=== PATIENT | female | born 1980 | race Two or more races ===

== ENCOUNTER 2024-06-12 06:53 | Emergency (ER) | payer MEDICARE, MEDICAID ==
[~2024-06-12] VITALS: Ht 160 cm; Wt 95.5 kg
[2024-06-12] MEDS ORDERED: htn PO (07:01)
[2024-06-12] MEDS ORDERED: cholesterol PO (07:01)
[2024-06-12 07:02] VITALS: TEMP 97.6
[2024-06-12] MEDS: METHADONE HCL 10 MG TABLET PO ONE (07:56)
[2024-06-12 07:57] VITALS: BP 128/84; PULSE 95; RESP 16; O2SAT 99
[2024-06-13] MEDS ORDERED: METH5SOL20 PO (07:21)
== END 2024-06-12 08:04 | disposition home or self-care (01) ==
LOC: EMS 06:53
DX: F11.23 Opioid dependence with withdrawal (principal); E11.9 Type 2 diabetes mellitus without complications; I10 Essential (primary) hypertension; F17.210 Nicotine dependence, cigarettes, uncomplicated
CPT/HCPCS: 99283

== ENCOUNTER 2024-06-13 07:04 | Emergency (ER) | payer MEDICARE, MEDICAID ==
[~2024-06-13] VITALS: Ht 160 cm; Wt 94.5 kg
[~2024-06-13 07:04] MED LIST: cholesterol PO; htn PO
[2024-06-13] MEDS ORDERED: METH5SOL20 PO (07:21)
[2024-06-13 07:46] LABS: GLUCOMETER DEV NAME(LOC) ERT.6; GLUCOSE,POINT OF CARE 216 MG/DL (70-110)
[2024-06-13 08:04] VITALS: BP 130/83; PULSE 102; RESP 16; TEMP 98.2; O2SAT 99
[2024-06-13] MEDS: METHADONE HCL 10 MG TABLET PO ONE (08:14)
== END 2024-06-13 09:13 | disposition home or self-care (01) ==
LOC: EMS 07:10
DX: F11.10 Opioid abuse, uncomplicated (principal); E11.9 Type 2 diabetes mellitus without complications; E78.00 Pure hypercholesterolemia, unspecified; I10 Essential (primary) hypertension; F17.210 Nicotine dependence, cigarettes, uncomplicated
CPT/HCPCS: 82962; 99283; 99285

== ENCOUNTER → 2024-06-14 | Emergency (ER) | payer MEDICARE, MEDICAID ==
[~2024-06-14] VITALS: Ht 160 cm; Wt 94.5 kg
[~2024-06-14] MED LIST changes: +METH5SOL20 PO
[2024-06-14 06:26] VITALS: BP 103/70; PULSE 98; RESP 15; O2SAT 100
[2024-06-16 13:16] LABS: GLUCOMETER DEV NAME(LOC) ERT.6; GLUCOSE,POINT OF CARE 173 MG/DL (70-110)
== END | disposition still patient (30) ==
LOC: EMS 06:19
DX: Z53.21 Procedure and treatment not carried out due to patient leaving prior to being seen by health care provider (principal); E11.9 Type 2 diabetes mellitus without complications
CPT/HCPCS: 82962

== ENCOUNTER → 2024-06-14 | Emergency (ER) | payer MEDICARE, MEDICAID ==
[~2024-06-14] VITALS: Ht 160 cm; Wt 94.5 kg
[2024-06-14 11:52] VITALS: BP 126/87; PULSE 76; RESP 18; TEMP 98; O2SAT 96
== END | disposition still patient (30) ==
LOC: EMS 11:42
DX: Z76.0 Encounter for issue of repeat prescription (principal); Z53.21 Procedure and treatment not carried out due to patient leaving prior to being seen by health care provider

== ENCOUNTER 2024-06-15 07:03 | Emergency (ER) | payer MEDICARE, MEDICAID ==
[~2024-06-15] VITALS: Ht 160 cm; Wt 94.5 kg
[2024-06-15 07:10] VITALS: BP 118/79; PULSE 109; RESP 18; TEMP 98; O2SAT 98
[2024-06-15 08:06] LABS: GLUCOMETER DEV NAME(LOC) ERT.6; GLUCOSE,POINT OF CARE 203 MG/DL (70-110)
== END 2024-06-15 09:25 | disposition left against medical advice (07) ==
LOC: EMS 07:03
DX: R51.9 Headache, unspecified (principal); Z53.21 Procedure and treatment not carried out due to patient leaving prior to being seen by health care provider
CPT/HCPCS: 82962

== ENCOUNTER 2024-07-02 07:29 | Emergency (ER) | payer MEDICARE, MEDICAID ==
[~2024-07-02] VITALS: Ht 160 cm; Wt 95.5 kg
[2024-07-02 07:32] VITALS: BP 127/69; PULSE 109; RESP 18; TEMP 98.1; O2SAT 97
[2024-07-02 07:56] LABS: GLUCOMETER DEV NAME(LOC) ERT.6; GLUCOSE,POINT OF CARE 141 MG/DL (70-110)
[2024-07-03] MEDS ORDERED: IBUP-1492 PO (12:33)
== END 2024-07-02 08:43 | disposition left against medical advice (07) ==
LOC: EMS 07:31
DX: G89.29 Other chronic pain (principal); M54.50 Low back pain, unspecified; F11.20 Opioid dependence, uncomplicated; R14.0 Abdominal distension (gaseous); E11.9 Type 2 diabetes mellitus without complications; E78.00 Pure hypercholesterolemia, unspecified; I10 Essential (primary) hypertension; F17.210 Nicotine dependence, cigarettes, uncomplicated
CPT/HCPCS: 82962; 99282

== ENCOUNTER 2024-07-03 09:11 | Emergency (ER) | payer MEDICARE, MEDICAID ==
[~2024-07-03] VITALS: Ht 160 cm; Wt 104.5 kg
[~2024-07-03 09:11] MED LIST changes: -cholesterol PO; -htn PO
[2024-07-03 09:21] VITALS: TEMP 98.1
[2024-07-03] MEDS: PANTOPRAZOLE SODIUM 40 MG/VIAL IVP ONE (10:01)
[2024-07-03] MEDS: SODIUM CHLORIDE 0.9% 500 ML IV ONE (10:03)
[2024-07-03 10:15] LABS: BASOPHILS % (AUTO) 0.5 % (0.0-2.0); EOSINOPHILS % (AUTO) 1.6 % (1.0-6.0); HEMATOCRIT 41.2 % (36-46); HEMOGLOBIN 13.4 g/dL (12.0-16.0); MEAN CORPUSCULAR HEMOGLOBIN 27.6 pg (26.0-34.0); MEAN CORPUSCULAR HGB CONC 32.5 G/dL (31.0-37.0); MEAN CORPUSCULAR VOLUME 85 fL (80-100); MONOCYTES # (AUTO) 0.6 K/uL (0.1-1.0); MONOCYTES % (AUTO) 5.6 % (2.0-9.0); NEUTROPHILS # (AUTO) 8.2 K/uL (1.8-7.7); NEUTROPHILS % (AUTO) 74.3 % (40.0-70.0); PLATELET COUNT (AUTO) 277 K/uL (150-450); RED BLOOD CELL COUNT(AUTO) 4.84 MIL/uL (4.00-5.20); RED CELL DISTRIBUTION WIDTH 15.2 % (11.5-14.5); WHITE BLOOD COUNT (AUTO) 11.1 K/uL (4.5-11.0)
[2024-07-03 10:22] LABS: ANION GAP 7 mmol/L (8-16); CALCIUM, TOTAL 8.3 mg/dL (8.8-10.5); CARBON DIOXIDE 29 mmol/L (22-29); CHLORIDE 103 mmol/L (98-107); CREATININE 0.99 mg/dL (0.60-1.30); GLOMERULAR FILTR. RATE CALC > 60 mL/min (>60); GLUCOSE,RANDOM 188 mg/dL (70-110); POTASSIUM 3.8 mmol/L (3.5-5.1); SODIUM SERUM 139 mmol/L (136-145); UREA NITROGEN, BLOOD 14 mg/dL (7-18)
[2024-07-03 10:33] LABS: HCG,QUANTITATIVE 2 mIU/mL (0-6); LIPASE 44 U/L (16-77)
[2024-07-03 12:12] VITALS: BP 133/81; PULSE 85; RESP 15; O2SAT 96
[2024-07-03] MEDS ORDERED: IBUP-1492 PO (12:33)
== END 2024-07-03 12:37 | disposition home or self-care (01) ==
LOC: EMS 09:13
DX: R10.9 Unspecified abdominal pain (principal); E11.9 Type 2 diabetes mellitus without complications; E78.00 Pure hypercholesterolemia, unspecified; I10 Essential (primary) hypertension; F17.210 Nicotine dependence, cigarettes, uncomplicated; F11.90 Opioid use, unspecified, uncomplicated
CPT/HCPCS: 99283; 96374; 96361; 80048; 83690; 84702; 85025; 36415; 82962; J2470; J7040

== ENCOUNTER 2024-07-19 16:26 | Emergency (ER) | payer MEDICARE, MEDICAID ==
[~2024-07-19] VITALS: Ht 160 cm; Wt 99.0 kg
[~2024-07-19 16:26] MED LIST changes: +IBUP-1492 PO
[2024-07-19 16:32] VITALS: BP 133/79; PULSE 103; RESP 16; TEMP 98.3; O2SAT 98
== END 2024-07-19 19:25 | disposition left against medical advice (07) ==
LOC: EMS 16:26
DX: G89.29 Other chronic pain (principal); M54.50 Low back pain, unspecified; Z53.21 Procedure and treatment not carried out due to patient leaving prior to being seen by health care provider

== ENCOUNTER 2024-08-07 00:47 | Emergency (ER) | payer MEDICARE, MEDICAID ==
[~2024-08-07] VITALS: Ht 157.5 cm; Wt 95.5 kg
[2024-08-07 01:02] VITALS: BP 116/55; PULSE 84; RESP 18; TEMP 98.4; O2SAT 96
[2024-08-07] MEDS: ONDANSETRON 4 MG TABLET PO ONE (02:59)
[2024-08-07] MEDS: OLANZapine 10 MG TABLET PO ONE (02:59)
[2024-08-07 03:08] LABS: COVID AG,FIA SOURCE NASAL SWAB
[2024-08-07 03:12] LABS: BASOPHILS % (AUTO) 0.6 % (0.0-2.0); EOSINOPHILS % (AUTO) 2.2 % (1.0-6.0); HEMATOCRIT 40.8 % (36-46); HEMOGLOBIN 13.6 g/dL (12.0-16.0); LYMPHOCYTES # (AUTO) 2.7 K/uL (1.0-4.8); LYMPHOCYTES % (AUTO) 21.8 % (22.0-44.0); MEAN CORPUSCULAR HEMOGLOBIN 28.4 pg (26.0-34.0); MEAN CORPUSCULAR HGB CONC 33.4 G/dL (31.0-37.0); MEAN CORPUSCULAR VOLUME 85 fL (80-100); MONOCYTES # (AUTO) 0.7 K/uL (0.1-1.0); MONOCYTES % (AUTO) 5.9 % (2.0-9.0); NEUTROPHILS # (AUTO) 8.5 K/uL (1.8-7.7); NEUTROPHILS % (AUTO) 69.5 % (40.0-70.0); PLATELET COUNT (AUTO) 281 K/uL (150-450); RED BLOOD CELL COUNT(AUTO) 4.79 MIL/uL (4.00-5.20); RED CELL DISTRIBUTION WIDTH 14.6 % (11.5-14.5); WHITE BLOOD COUNT (AUTO) 12.3 K/uL (4.5-11.0)
[2024-08-07 03:21] LABS: SARS-COV2 (COVID) ANTIGEN,FIA Negative (Negative)
[2024-08-07 03:21] LABS: ANION GAP 6 mmol/L (8-16); CALCIUM, TOTAL 9.9 mg/dL (8.8-10.5); CARBON DIOXIDE 33 mmol/L (22-29); CHLORIDE 99 mmol/L (98-107); CREATININE 1.22 mg/dL (0.60-1.30); GLOMERULAR FILTR. RATE CALC 48 mL/min (>60); GLUCOSE,RANDOM 89 mg/dL (70-110); POTASSIUM 3.8 mmol/L (3.5-5.1); SODIUM SERUM 138 mmol/L (136-145); UREA NITROGEN, BLOOD 13 mg/dL (7-18)
[2024-08-07 03:37] LABS: ALCOHOL, BLOOD (SERUM) < 3 mg/dL (0-10)
== END 2024-08-07 06:29 | disposition home or self-care (01) ==
LOC: EMS 00:52
DX: R44.1 Visual hallucinations (principal); R11.2 Nausea with vomiting, unspecified; E11.9 Type 2 diabetes mellitus without complications; E78.00 Pure hypercholesterolemia, unspecified; I10 Essential (primary) hypertension; F17.210 Nicotine dependence, cigarettes, uncomplicated; R44.0 Auditory hallucinations; F15.90 Other stimulant use, unspecified, uncomplicated; Z20.822 Contact with and (suspected) exposure to COVID-19
CPT/HCPCS: 99284; 87426; 80048; 82962; 85025; 36415; G0480; Q0162

== ENCOUNTER 2024-08-17 13:49 | Inpatient (IN) | payer MEDICARE, MEDICAID ==
[~2024-08-17] VITALS: Ht 160 cm; Wt 95.3 kg
[2024-08-17] MEDS ORDERED: ZOLPIDEM TARTRATE 10 MG TABLET PO PRN (16:00)
[2024-08-17] MEDS ORDERED: MAGNESIUM HYDROXIDE SUSPENSION 30 ML UDCUP PO PRN (16:00)
[2024-08-17] MEDS ORDERED: LOPERAMIDE HCL 2 MG CAPSULE PO PRN (16:00)
[2024-08-17] MEDS ORDERED: MAG HYDROX/ALUMINUM HYD/SIMETH ES 30 ML SUSPENSION UDCUP PO PRN (16:00)
[2024-08-17] MEDS ORDERED: GuaiFENesin/D-METHORPHAN [SUGAR-FREE] 200-20MG/10 ML SYRUP UDCUP PO PRN (16:00)
[2024-08-17] MEDS ORDERED: TUBERCULIN, PURIFIED PROTEIN DERIVATIVE 5 TU/0.1 ML SYRINGE ID ONE (16:00)
[2024-08-17] MEDS ORDERED: NALO4SPR NASAL (16:08)
[2024-08-17] MEDS ORDERED: METF-1211 PO (16:08)
[2024-08-17] MEDS ORDERED: OLAN5TAB77 PO (16:08)
[2024-08-17] MEDS ORDERED: [UNRECOGNIZED DRUG - CODE] PO (16:08)
[2024-08-17 17:21] LABS: GLUCOMETER DEV NAME(LOC) POC.BV; POC SARS-COV2 AG, FIA NEGATIVE (NEGATIVE)
[2024-08-17] MEDS: THIAMINE 100 MG TABLET PO SCH (17:58)
[2024-08-17] MEDS: OLANZapine 5 MG RAPDIS TABLET PO PRN (18:23)
[2024-08-17] MEDS: LORazepam 2 MG TABLET PO PRN (18:23)
[2024-08-17 18:39] VITALS: BP 118/78; PULSE 85; RESP 19; TEMP 98; O2SAT 98
[2024-08-17] MEDS ORDERED: INFLUENZA VIRUS VACCINE TVS (6MO+) 2024-25/PF 45 MCG/0.5 ML SYRINGE IM. ONE (20:15)
[2024-08-17] MEDS ORDERED: PNEUMOCOCCAL VACCINE POLYVALENT 0.5 ML SYRINGE [PPSV23] IM. ONE (20:15)
[2024-08-17 20:40] VITALS: BP 118/74; PULSE 88; RESP 16; TEMP 98; O2SAT 98
[2024-08-17] MEDS: DIVALPROEX SODIUM 500 MG ER TABLET PO SCH (20:48)
[2024-08-17] MEDS: OLANZapine 5 MG RAPDIS TABLET PO SCH (20:49)
[2024-08-17 22:00] LABS: GLUCOMETER DEV NAME(LOC) BV2S.; GLUCOSE,POINT OF CARE 190 MG/DL (70-110)
[2024-08-18 08:06] VITALS: RESP 18
[2024-08-18] MEDS: NALTREXONE HCL 50 MG TABLET PO SCH (09:00)
[2024-08-18] MEDS: MULTIVITAMINS WITH MINERALS, THERAPEUTIC TABLET PO SCH (09:00)
[2024-08-18] MEDS: FOLIC ACID 1 MG TABLET PO SCH (09:00)
[2024-08-18] MEDS: DiphenhydrAMINE HCL 50 MG/ML VIAL IM ONE ×2 (09:49→11:10)
[2024-08-18] MEDS: LORazepam 2 MG/ML VIAL IM ONE ×2 (09:49→11:07)
[2024-08-18] MEDS: HALOPERIDOL LACTATE 5 MG/ML VIAL IM ONE (09:49)
[2024-08-18] MEDS: ChlorproMAZINE HCL 50 MG/2 ML AMP IM ONE (11:10)
[2024-08-18] MEDS ORDERED: OLANZapine 5 MG RAPDIS TABLET PO PRN (20:00)
[2024-08-18 20:30] VITALS: BP 97/60; PULSE 77; RESP 16; TEMP 98.4; O2SAT 98
[2024-08-18] MEDS: MELATONIN 5 MG TABLET PO SCH (20:40)
[2024-08-19 06:10] VITALS: BP 119/79; PULSE 80; RESP 18
[2024-08-19] MEDS: ACETAMINOPHEN 325 MG TABLET PO PRN (06:12)
[2024-08-19 07:10] VITALS: RESP 18
[2024-08-19] MEDS: HydrOXYzine PAMOATE 50 MG CAPSULE PO PRN (08:02)
[2024-08-19] MEDS: PALIPERIDONE PALMITATE 234 MG/1.5 ML SYRINGE IM ONE (08:03)
[2024-08-19] MEDS: METHADONE HCL 10 MG/5 ML SOLUTION ORAL.SYG PO SCH (08:03)
[2024-08-19 08:30] VITALS: RESP 18
[2024-08-19] MEDS: LORazepam 2 MG/ML VIAL IM ONE (09:17)
[2024-08-19] MEDS: HALOPERIDOL LACTATE 5 MG/ML VIAL IM ONE (09:18)
[2024-08-19] MEDS: DiphenhydrAMINE HCL 50 MG/ML VIAL IM ONE (09:18)
[2024-08-19] MEDS: OLANZapine 5 MG RAPDIS TABLET PO PRN (18:15)
[2024-08-19 20:22] VITALS: RESP 20
[2024-08-19] MEDS: PROMETHAZINE HCL 25 MG TABLET PO PRN (21:51)
[2024-08-19] MEDS: OLANZapine 10 MG RAPDIS TABLET PO SCH (23:01)
[2024-08-20] VITALS (7 sets, daily range): BP systolic 106–142; BP diastolic 28–93; PULSE 75–113; RESP 18–20; TEMP 97.1–99.4; O2SAT 95–99
[2024-08-20] MEDS: GABAPENTIN 300 MG CAPSULE PO PRN (00:07)
[2024-08-20] MEDS: ESZOPICLONE 3 MG TABLET PO PRN (03:07)
[2024-08-20] MEDS ORDERED: CloNIDine HCL 0.1 MG TABLET PO PRN (15:15)
[2024-08-20] MEDS: CloNIDine HCL 0.1 MG TABLET PO SCH (16:58)
[2024-08-20] MEDS: BUPRENORPHINE HCL/NALOXONE HCL 2-0.5 MG SUBLINGUAL TABLET SL SCH (16:59)
[2024-08-21] MEDS: IBUPROFEN 600 MG TABLET PO PRN (01:03)
[2024-08-21 01:05] VITALS: BP 109/68; PULSE 97; RESP 18; TEMP 97.1; O2SAT 98
[2024-08-21 02:05] VITALS: RESP 16
[2024-08-21 06:14] VITALS: BP 116/84; PULSE 87; RESP 18; TEMP 97.4
[2024-08-21 08:33] LABS: BASOPHILS % (AUTO) 0.5 % (0.0-2.0); EOSINOPHILS % (AUTO) 0.6 % (1.0-6.0); HEMATOCRIT 47.4 % (36-46); HEMOGLOBIN 15.2 g/dL (12.0-16.0); LYMPHOCYTES # (AUTO) 4.1 K/uL (1.0-4.8); LYMPHOCYTES % (AUTO) 22.8 % (22.0-44.0); MEAN CORPUSCULAR HEMOGLOBIN 27.4 pg (26.0-34.0); MEAN CORPUSCULAR VOLUME 86 fL (80-100); MONOCYTES # (AUTO) 1.1 K/uL (0.1-1.0); MONOCYTES % (AUTO) 6.4 % (2.0-9.0); NEUTROPHILS # (AUTO) 12.5 K/uL (1.8-7.7); NEUTROPHILS % (AUTO) 69.7 % (40.0-70.0); PLATELET COUNT (AUTO) 332 K/uL (150-450); RED BLOOD CELL COUNT(AUTO) 5.54 MIL/uL (4.00-5.20); RED CELL DISTRIBUTION WIDTH 14.5 % (11.5-14.5); WHITE BLOOD COUNT (AUTO) 17.9 K/uL (4.5-11.0)
[2024-08-21 08:34] VITALS: BP 112/73; PULSE 78; RESP 18; TEMP 98
[2024-08-21 08:35] VITALS: BP 112/73; PULSE 78; RESP 18; TEMP 98; O2SAT 98
[2024-08-21 08:35] LABS: HEMOGLOBIN A1C 5.8 % (3.8-5.6)
[2024-08-21 08:46] LABS: ALBUMIN 3.2 g/dL (3.4-5.0); BILIRUBIN,TOTAL 0.4 mg/dL (0.1-1.0); CALCIUM, TOTAL 9.2 mg/dL (8.8-10.5); CREATININE 1.01 mg/dL (0.60-1.30); POTASSIUM 4.5 mmol/L (3.5-5.1); TOTAL PROTEIN, SERUM 7.5 g/dL (6.4-8.2)
[2024-08-21] MEDS: CIPROFLOXACIN HCL 500 MG TABLET PO SCH (18:27)
[2024-08-21 20:09] VITALS: BP 127/84; PULSE 100; RESP 18; TEMP 97.7; O2SAT 96
[2024-08-22 06:40] VITALS: BP 108/71; PULSE 85; RESP 18; TEMP 97.6
[2024-08-22 08:22] VITALS: BP 120/76; PULSE 100; RESP 16; TEMP 97.6; O2SAT 96
[2024-08-22 08:56] LABS: HCG,QUAL URINE NEGATIVE (NEGATIVE)
[2024-08-22 09:03] LABS: ALCOHOL, URINE DRUG SCREEN NEGATIVE (NEGATIVE); AMPHET/METH SCREEN,URINE NEGATIVE (NEGATIVE); BARBITURATE SCREEN, URINE NEGATIVE (NEGATIVE); BENZODIAZEPINES SCREEN,URINE NEGATIVE (NEGATIVE); CANNABINOID SCREEN,URINE NEGATIVE (NEGATIVE); COCAINE SCREEN,URINE NEGATIVE (NEGATIVE); METHADONE SCREEN, URINE POSITIVE (NEGATIVE); OPIATE SCREEN,URINE NEGATIVE (NEGATIVE); PHENCYCLIDINE SCREEN,URINE NEGATIVE (NEGATIVE)
[2024-08-22 10:16] VITALS: BP 134/88; PULSE 83; RESP 19; TEMP 98.3; O2SAT 99
[2024-08-22 20:30] VITALS: BP 118/68; PULSE 86; RESP 18; TEMP 97.6; O2SAT 98
[2024-08-23 05:56] VITALS: RESP 18
[2024-08-23 08:10] VITALS: BP 133/79; PULSE 108; PULSE 109; RESP 16; TEMP 96.5; O2SAT 94; O2SAT 99
[2024-08-23] MEDS: HydrOXYzine PAMOATE 50 MG CAPSULE PO PRN (08:39)
[2024-08-23] MEDS ORDERED: PALIPERIDONE PALMITATE 156 MG/ML SYRINGE IM ONE (09:00)
[2024-08-23 23:30] VITALS: RESP 18
[2024-08-24 08:46] VITALS: RESP 16
[2024-08-24] MEDS ORDERED: LORazepam 2 MG/ML VIAL ONE (10:10)
[2024-08-24] MEDS ORDERED: DiphenhydrAMINE HCL 50 MG/ML VIAL ONE (10:11)
[2024-08-24] MEDS ORDERED: HALOPERIDOL LACTATE 5 MG/ML VIAL ONE (10:11)
[2024-08-24] MEDS: HALOPERIDOL LACTATE 5 MG/ML VIAL IM ONE (10:19)
[2024-08-24] MEDS: DiphenhydrAMINE HCL 50 MG/ML VIAL IM ONE (10:20)
[2024-08-24] MEDS: LORazepam 2 MG/ML VIAL IM ONE (10:20)
[2024-08-24 17:13] VITALS: BP 104/66; PULSE 68; RESP 17; TEMP 96.6; O2SAT 97
[2024-08-24 20:30] VITALS: BP 117/73; PULSE 69; RESP 18; TEMP 97.2; O2SAT 98
[2024-08-24 20:31] VITALS: BP 104/66; PULSE 68; RESP 16; TEMP 96.5; O2SAT 97
[2024-08-25 09:22] VITALS: RESP 16
[2024-08-25] MEDS: MAG HYDROX/ALUMINUM HYD/SIMETH ES 30 ML SUSPENSION UDCUP PO PRN (09:22)
[2024-08-25 10:22] VITALS: RESP 16
[2024-08-25 10:30] VITALS: BP 132/67; PULSE 99; RESP 16; TEMP 98.9; O2SAT 98
[2024-08-25 10:46] VITALS: BP 132/67; PULSE 99; RESP 16; TEMP 98.9; O2SAT 98
[2024-08-25 21:22] VITALS: BP 129/70; PULSE 85; RESP 16; TEMP 96.8; O2SAT 97
[2024-08-25 21:23] VITALS: BP 129/70; PULSE 85; RESP 16; TEMP 96.8; O2SAT 97
[2024-08-26] MEDS: OLANZapine 5 MG RAPDIS TABLET PO SCH (01:55)
[2024-08-26 06:17] VITALS: BP 117/85; PULSE 94; RESP 17; TEMP 97.2; O2SAT 98
[2024-08-26 08:10] VITALS: RESP 18
[2024-08-26] MEDS: NICOTINE POLACRILEX 2 MG LOZENGE PO PRN (10:12)
[2024-08-26] MEDS ORDERED: HALOPERIDOL LACTATE 5 MG/ML VIAL ONE (12:28)
[2024-08-26] MEDS: DiphenhydrAMINE HCL 50 MG/ML VIAL IM ONE (12:59)
[2024-08-26] MEDS: HALOPERIDOL LACTATE 5 MG/ML VIAL IM ONE (12:59)
[2024-08-26] MEDS: LORazepam 2 MG/ML VIAL IM ONE (13:08)
[2024-08-27 08:41] VITALS: RESP 16
[2024-08-27 09:28] LABS: BASOPHILS % (AUTO) 0.3 % (0.0-2.0); EOSINOPHILS % (AUTO) 2.2 % (1.0-6.0); HEMATOCRIT 38.5 % (36-46); HEMOGLOBIN 12.6 g/dL (12.0-16.0); LYMPHOCYTES % (AUTO) 20.5 % (22.0-44.0); MEAN CORPUSCULAR HGB CONC 32.7 G/dL (31.0-37.0); MEAN CORPUSCULAR VOLUME 86 fL (80-100); MONOCYTES # (AUTO) 0.7 K/uL (0.1-1.0); PLATELET COUNT (AUTO) 242 K/uL (150-450); WHITE BLOOD COUNT (AUTO) 9.9 K/uL (4.5-11.0)
[2024-08-27 20:29] VITALS: BP 108/68; PULSE 69; RESP 16; TEMP 98.1; O2SAT 97
[2024-08-28 08:58] VITALS: RESP 16
[2024-08-28 09:17] VITALS: BP 138/88; PULSE 88; RESP 19; TEMP 98.3; O2SAT 99
[2024-08-28 20:09] VITALS: BP 106/60; PULSE 54; RESP 16; TEMP 97.4; O2SAT 95
[2024-08-29 08:48] VITALS: BP 122/81; PULSE 97; RESP 17; TEMP 98; O2SAT 96
[2024-08-29 12:33] VITALS: BP 114/65; PULSE 90; RESP 18; O2SAT 99
[2024-08-29 20:08] VITALS: BP 90/45; PULSE 65; RESP 18; TEMP 96.9; O2SAT 96
[2024-08-30 08:26] VITALS: BP 113/58; PULSE 100; RESP 18; TEMP 97.9; O2SAT 95
[2024-08-30] MEDS ORDERED: LORazepam 2 MG/ML VIAL ONE (10:48)
[2024-08-30] MEDS ORDERED: DiphenhydrAMINE HCL 50 MG/ML VIAL ONE (10:48)
[2024-08-30] MEDS: DiphenhydrAMINE HCL 50 MG/ML VIAL IM ONE (11:10)
[2024-08-30] MEDS: LORazepam 2 MG/ML VIAL IM ONE (11:10)
[2024-08-30] MEDS: ChlorproMAZINE HCL 50 MG/2 ML AMP IM ONE (11:11)
[2024-08-30 12:30] VITALS: BP 125/69; PULSE 105; RESP 17; O2SAT 97
[2024-08-30 16:30] VITALS: BP 144/87; PULSE 100; RESP 18; TEMP 97.2; O2SAT 96
[2024-08-30 21:09] VITALS: BP 90/55; PULSE 74; RESP 17; TEMP 97.5; O2SAT 96
[2024-08-31 08:17] VITALS: BP 106/79; PULSE 89; RESP 18; TEMP 98; O2SAT 99
[2024-08-31] MEDS ORDERED: ChlorproMAZINE HCL 100 MG TABLET PO PRN (10:45)
[2024-08-31] MEDS: ChlorproMAZINE HCL 50 MG TABLET PO SCH ×2 (12:45→16:26)
[2024-09-01 08:24] VITALS: RESP 18
[2024-09-01 20:17] VITALS: BP 94/49; PULSE 77; RESP 18; TEMP 96.8; O2SAT 98
[2024-09-01] MEDS: ChlorproMAZINE HCL 100 MG TABLET PO SCH (20:57)
[2024-09-02 08:08] VITALS: RESP 16
[2024-09-02] MEDS ORDERED: CHLO100T42 PO (12:07)
[2024-09-02] MEDS ORDERED: BUPR1TAB45 SL (12:07)
[2024-09-02] MEDS ORDERED: MELA5TAB40 PO (12:07)
[2024-09-02] MEDS ORDERED: DIVA-153 PO (12:07)
[2024-09-02 20:07] VITALS: BP 141/95; PULSE 95; RESP 18; TEMP 97.5; O2SAT 100
[2024-09-03 08:33] VITALS: BP 117/74; PULSE 82; RESP 18; TEMP 98; O2SAT 98
[2024-09-03 11:56] VITALS: BP 110/66; PULSE 105; RESP 18; TEMP 98; O2SAT 96
== END 2024-09-03 15:16 | disposition home or self-care (01) | DRG 885 ==
LOC: B2S 16:10 → B3A 08-18 08:43
PROVIDERS: ADMIT Psychiatry & Neurology Psychiatry; ATTEND Psychiatry & Neurology Psychiatry
PROC: GZHZZZZ Group Psychotherapy (ICD-10-PCS; principal; 2024-08-17)
PROC: GZ58ZZZ Individual Psychotherapy, Cognitive-Behavioral (ICD-10-PCS; 2024-08-17)
PROC: GZ56ZZZ Individual Psychotherapy, Supportive (ICD-10-PCS; 2024-08-17)
DX: F25.9 Schizoaffective disorder, unspecified (principal); F17.200 Nicotine dependence, unspecified, uncomplicated; J44.9 Chronic obstructive pulmonary disease, unspecified; E11.9 Type 2 diabetes mellitus without complications; E78.00 Pure hypercholesterolemia, unspecified; E66.9 Obesity, unspecified; I10 Essential (primary) hypertension; Z20.822 Contact with and (suspected) exposure to COVID-19; F41.9 Anxiety disorder, unspecified; F32.A Depression, unspecified; Z63.9 Problem related to primary support group, unspecified; Z91.199 Patient's noncompliance with other medical treatment and regimen due to unspecified reason; Z59.9 Problem related to housing and economic circumstances, unspecified; Z65.3 Problems related to other legal circumstances; Z55.9 Problems related to education and literacy, unspecified; Z91.148 Patient's other noncompliance with medication regimen for other reason; Z68.37 Body mass index [BMI] 37.0-37.9, adult
CPT/HCPCS: 80053; 80061; 80164; 80307; 82962; 83036; 84703; 85025; J1200; J1630; J2060; J3230